=== PATIENT | male | born 1955 | race Asian ===

== ENCOUNTER 2022-05-04 23:41 | Emergency (ER) | payer MEDICARE, MEDICAID ==
[~2022-05-04] VITALS: Ht 170.2 cm; Wt 84.0 kg
[2022-05-05 01:17] VITALS: BP 147/94
[2022-05-05] MEDS ORDERED: glipiZIDE 5 MG TAB PO ONE (03:00)
[2022-05-05] MEDS ORDERED: BENZTROPINE MESY 0.5 MG TAB PO ONE (03:00)
== END 2022-05-05 06:09 | disposition home or self-care (01) ==
LOC: ER 23:41
DX: F32.9 Major depressive disorder, single episode, unspecified (principal); F20.9 Schizophrenia, unspecified; Z76.0 Encounter for issue of repeat prescription